=== PATIENT | female | born 1990 | race Two or more races ===

== ENCOUNTER → 2024-04-15 | Outpatient (CLI) | payer MEDICAID, SELFPAY ==
--- NOTE | 2024-04-15 | XR_ITS ---
Examination: Hand, left 3 views Technique: Hand AP, oblique, lateral 3 views Date and time of exam: April 15, 2024 1238 hours INDICATIONS: Decreased range of motion left first digit one year Finger left first digit 10 months FINDINGS: Mild juxta-articular bone demineralization No fracture Mild osteoarthritis interphalangeal joint first digit as well as distal interphalangeal joints second through fifth digits No erosive arthritis IMPRESSION: Mild osteoarthritis as above
--- NOTE | 2024-04-15 | XR_ITS ---
Examination: Wrist, left 3 views Technique: Wrist AP, oblique, lateral 3 views Date and time of exam: April 15, 2024 1238 hours INDICATIONS: Decreased mobility first digit one year. FINDINGS: No fracture or dislocation Mild osteoarthritis radiocarpal navicular trapezium first carpometacarpal joints No avascular necrosis IMPRESSION: Mild osteoarthritis
== END | disposition home or self-care (01) ==
LOC: CDIM 11:08
PROVIDERS: Referring Provider Nurse Practitioner Gerontology; Visit Provider Nurse Practitioner Gerontology
DX: M19.042 Primary osteoarthritis, left hand (principal); M19.032 Primary osteoarthritis, left wrist
CPT/HCPCS: 73110; 73130

== ENCOUNTER → 2024-11-13 | Outpatient (CLI) | payer MEDICAID, SELFPAY ==
--- NOTE | 2024-11-13 07:00 | XR_ITS ---
Examination: MRI xx foot, without contrast Date and time of exam: November 13, 2024, 0656 hours INDICATIONS: Right ankle pain swelling numbness several years, worse the last 2 months Technique: Multiple axial sagittal and coronal images of the right ankle have been obtained with the Siemens high-resolution 1.5 Rosina MRI scanner. Images obtained include T2-weighted fat-suppressed sagittal sections, TR 3500, TE 46, T2 weighted coronal fat suppressed images, TR 3050, TE 84, T2-weighted transverse fat suppressed images, TR 3260, TE 63, proton density transverse images, TR 4720 TE 46, and T1 weighted coronal images, TR 560, TE 13. Findings: Thickening of the Achilles tendon with vertical hyperintensity consistent with moderate strain Mild plantar fasciitis No bone marrow edema, bone contusion, occult fracture or avascular necrosis Negative for sinus Tarsi syndrome Anterior posterior inferior tibiofibular ligaments intact Moderate sprain posterior talofibular ligament axial image 14 Tendinitis posterior tibial tendon Extensor tendons are intact Dome of the talus intact IMPRESSION: Moderate strain Achilles tendon Mild plantar fasciitis No occult fracture or bone contusion or avascular necrosis Moderate sprain posterior talofibular ligament Tendinitis posterior tibial tendon
== END | disposition home or self-care (01) ==
PROVIDERS: PCP Nurse Practitioner Family; Referring Provider Nurse Practitioner Family; Visit Provider Nurse Practitioner Family
DX: M72.2 Plantar fascial fibromatosis (principal); S86.011A Strain of right Achilles tendon, initial encounter; S93.491A Sprain of other ligament of right ankle, initial encounter; X58.XXXA Exposure to other specified factors, initial encounter; M76.821 Posterior tibial tendinitis, right leg
CPT/HCPCS: 73721

== ENCOUNTER → 2024-11-26 | Outpatient (CLI) | payer MEDICAID, SELFPAY ==
--- NOTE | 2024-11-26 14:44 | XR_ITS ---
Examination: Bilateral wrists 6 views TECHNIQUE: AP oblique lateral each wrist total 6 views Date and time: November 26, 2024 1458 hours INDICATIONS: Bilateral wrist pain and weakness after falling one week ago. FINDINGS: Mild osteopenia. Mild bilateral osteoarthritis first carpometacarpal joints No wrist fractures No avascular necrosis No opaque foreign bodies No erosive arthritis IMPRESSION: No fractures Mild osteoarthritis first carpometacarpal joints
--- NOTE | 2024-11-26 14:44 | XR_ITS ---
Examination: Bilateral hands, 6 views. Technique: AP, Oblique, Lateral each hand total 6 views Date and time of exam: November 26, 2024 1458 hours Comparison April 15, 2024 INDICATIONS: Bilateral hand pain and weakness especially first digits after fall one week ago Findings: Mild juxta-articular bone demineralization No acute fracture involving either hand Mild bilateral osteoarthritis distal interphalangeal joints second through fifth digits and interphalangeal joints first digits Mild bilateral osteoarthritis first carpometacarpal joints No erosive arthritis IMPRESSION: Mild osteoarthritis as above
== END | disposition home or self-care (01) ==
LOC: CDIM 14:39
PROVIDERS: PCP Family Medicine
DX: M19.042 Primary osteoarthritis, left hand (principal); M19.041 Primary osteoarthritis, right hand; M18.0 Bilateral primary osteoarthritis of first carpometacarpal joints
CPT/HCPCS: 73110; 73130

== ENCOUNTER 2025-04-07 07:45 | Day surgery (SDC) | payer MEDICAID, SELFPAY ==
--- NOTE | 2025-04-06 08:48 | ESHP_ITS ---
RE: YULI GONZALEZ : 1990 DATE OF ADMISSION: 04/07/2025 This is a 34-year-old 3, para 1-1-1-2 who is multiparous and desires voluntary sterilization. She also wants her Nexplanon subdermal implant removed. MEDICATIONS: Nexplanon 68 mg subdermal implant, left upper extremity. SOCIAL HISTORY: She denies any alcohol, drug use, or smoking. PAST MEDICAL HISTORY: Hypertension, ectopic , preeclampsia with severe features, and leiomyomatous uterus. FAMILY HISTORY: Hypertension, cousin with autism. PAST SURGICAL HISTORY: delivery 2015, laparoscopic right salpingectomy 2018, delivery 2019, and appendectomy via laparotomy. REVIEW OF SYSTEMS: She denies any chest pain, palpitations, cough, fever, shortness of breath, or lower extremity pain. She denies any headache, change in vision, or right upper quadrant pain. PHYSICAL EXAMINATION: VITAL SIGNS: Blood pressure 110/70, heart rate 88, respirations 18, temperature 98.6. HEENT: Oropharynx and sclerae clear. LUNGS: Clear to auscultation bilaterally. HEART: Regular rate and rhythm. ABDOMEN: Old Pfannenstiel scar noted. Old trocar scars noted. EXTREMITIES: Nontender. SKIN: No gross rashes or lesions. NEUROLOGIC: No focal deficit. ASSESSMENT AND PLAN: Multiparity. Desires voluntary sterilization. PLAN: Laparoscopic bilateral salpingectomy and removal of Nexplanon subdermal implant. Informed consent was obtained. The patient was made aware of the risk, complications, alternatives, and benefits of the proposed procedure, and she agrees. She is aware of the failure rate and increased risk of tubal ectopic gestation if occurs. She is aware of the reversal methods of control, and she declines these methods. She is aware that vasectomy is simply easier and safer and may have a lower failure rate, but her male partner declines that option. She was given the [facility] booklet titled Permanent Control for Women and Men and it was discussed with the patient prior to surgery. She is aware of the risk of injury to bowel, bladder, ureters, adjacent organs, pulmonary embolism, deep vein thrombosis, injury to the vessels of the abdominal wall, hematoma, abscess, wound infection, wound dehiscence, pelvic infection, reoperation to repair injury to internal organs, anesthesia complications, the possibility that a laparotomy needs to be performed to complete the procedure or control bleeding, and the possibility the procedure is not able to be completed due to severe adhesions or technical difficulties. The patient is also aware that these risks are greater due to her previous multiple surgeries. She verbalized understanding and agreed to proceed with the procedure. DT: 09:26:52 TT: 09:58:00 Ref: [id number] - TID: [id number] MTDD
[2025-04-06 10:04] VITALS: BMI 33.5
[2025-04-06 11:05] LABS: Basophils # (Auto) 0.1 Thou/mm3 (0.0-0.2); Basophils % (Auto) 1 % (0-2.5); Eosinophils # (Auto) 0.1 Thou/mm3 (0.0-0.5); Eosinophils % (Auto) 2 % (0-10); Hematocrit 39.4 % (36.0-46.0); Hemoglobin 12.9 g/dL (12.0-16.0); Immature Granulocytes Auto 0.01 Thou/mm3 (0.00-0.00); Lymphocytes # (Auto) 1.3 Thou/mm3 (1.0-4.8); Lymphocytes % (Auto) 21 % (10-50); Mean Corpuscular HGB Conc 32.7 g/dl (31.0-37.0); Mean Corpuscular Hemoglobin 29.9 pg (25.0-35.0); Mean Corpuscular Volume 91 fL (80-100); Monocytes # (Auto) 0.4 Thou/mm3 (0.0-0.8); Monocytes % (Auto) 7 % (0-12); Neutrophils # (Auto) 4.5 Thou/mm3 (1.8-7.7); Neutrophils % (Auto) 70 % (37-80); Nucleated Red Blood Cell # 0.00 Thou/mm3 (0.00-0.00); Nucleated Red Blood Cell % 0 /100 WBC (0); Platelet Count 204 Thou/mm3 (140-440); RDW Standard Deviation 42.7 fL (36.4-46.3); Red Blood Count 4.32 Miln/mm3 (4.00-5.20); White Blood Count 6.5 Thou/mm3 (3.6-11.0)
[2025-04-06 11:13] LABS: INR 1.0 (0.9-1.3); Partial Thromboplastin Time 30.6 Seconds (22.0-36.0); Prothrombin Time 10.7 Seconds (9.0-12.2)
[2025-04-06 11:17] LABS: Alanine Aminotransferase 17 U/L (10-49); Albumin, Serum 4.7 gm/dL (3.5-5.0); Albumin/Globulin Ratio 1.8 (1.2-2.2); Alkaline Phosphatase 61 U/L (46-116); Anion Gap 9 (7-16); Aspartate Amino Transferase 16 U/L (0-34); BUN/Creatinine Ratio 19 Ratio (12-20); Beta HCG,Quantitative < 1 mIU/mL (<5.0); Bilirubin,Total 0.5 mg/dL (0.3-1.2); Blood Urea Nitrogen 13 mg/dL (9-23); Calcium 9.5 mg/dL (8.3-10.6); Calcium (Corrected) 9.5 mg/dL (8.5-10.1); Carbon Dioxide 25.9 mMol/L (20.0-31.0); Chloride 108 mMol/L (98-107); Creatinine (Component) 0.7 mg/dL (0.6-1.3); Estimated Creatinine Clearance 106.9 mL/min (>60); Globulin 2.6 gm/dL (2.3-3.5); Glucose 92 mg/dL (74-106); Osmolality,Calculated 285 (275-295); Potassium 4.0 mMol/L (3.4-5.1); Sodium 143 mMol/L (136-145); Total Protein 7.3 gm/dL (5.7-8.2); eGFR > 60 See Note
[2025-04-07] VITALS (8 sets, daily range): BP systolic 108–129; BP diastolic 55–67; PULSE 65–96; RESP 12–24; TEMP 36.3–36.7; O2SAT 97–100; BMI 33.5
--- NOTE | 2025-04-07 11:15 | ESOP_ITS ---
Operative Note - [facility] SILVERSMITH Procedure Date of procedure: 04/07/25 Procedure Performed: Laparoscopic bilateral salpingectomy Nexplanon removal of subdermal implant in left upper extremity Lysis of Adhesions. Indication: Multiparity desires voluntary sterilization Desires Removal Of Nexplanon Pre-Op diagnosis: Multiparity desires voluntary sterilization Desires Removal Of Nexplanon Post-Op diagnosis: Multiparity desires voluntary sterilization Desires Removal Of Nexplanon Pelvic adhesions Anesthesia type: General Procedure description: After proper informed consent was obtained, and the patient made aware of the risks complications alternatives and benefits of the proposed procedure she was taken to the operating room.? She was placed in the supine position on the operating room table.? She underwent induction of general anesthesia.? She was placed in the dorsal lithotomy position.? Using sterile technique a red rubber catheter was used to drain the bladder.? The patient was prepped and draped in usual sterile fashion.? A timeout was performed.? An acorn manipulator was placed in the uterus. ? Attention was then turned to the abdomen where the physician regowned and gloved.? A 5 mm incision was made in the umbilical fold.? With tenting up of the abdomen a Veress needle was inserted.? Using saline intra-abdominal placement was confirmed.? The abdomen was inflated with carbon dioxide to 12 mmHg.? The Veress needle was then removed.? The [place] trocar with the laparoscope was carefully inserted through the umbilical incision and the peritoneal cavity entered.? The patient was placed in slight Trendelenburg.? A 5 mm incision was made in the region of the symphysis pubis in the midline approximately 2 cm above the symphysis pubis.? Through this 5 mm incision a 5 mm trocar was inserted under direct visualization of the laparoscope.? Using the Briggs Geck grasper the right fallopian tube was grasped at the fimbriated end.?? Using the 1136 harmonic scalpel the right salpingectomy was performed and specimen sent to pathology. The left fallopian tube was grasped at the fimbriated end and using the harmonic scalpel the left salingectomy was performed.? Hemostasis was achieved.? The pelvis was visualized and found to be hemostatic. The trocars were removed from the abdomen after carbon oxide was removed from the peritoneal cavity.? The incisions were closed with 4-0 Monocryl and covered with Dermabond after they were each infiltrated with Marcaine half percent with epinephrine.? Attention was then turned to the vagina where the uterine manipulator was removed and there was no bleeding at the end of the procedure. Attention was turned to the left upper extremity where the skin was prepped and drapped over the nexplanon amanda site. Using a number 11 blade scalpel the 3 mm inscision was made and the Nexplanon amanda removed without diff iculty. The skin was closed with 4-0 monocryl and covered with Dermabond. Specimen sent to pathology. Specimen: left tube, right tube and other (Nexplanon amanda) Estimated blood loss (ml): 10 Findings: Normal appearing ovaries and uterus. Left fallopian tube had adhesions to posterior peritoneum at fimbriated end Right fallopian tube was missing the ampullary segment with filmy adhesions to posterior peritoneum. Nexplanon subdermal implant left upper extremity. Complications: none Surgical staff Dr Johnson Surgeon Alvarez Mccord [employer] Operation Date: 04/07/25 10:00 <No data on this case meets the specified criteria> Diagnosis Problem List Completed Was Problem List Reviewed/Reconciled?: Yes
--- NOTE | 2025-04-07 11:32 | SUR.PHASEI ---
1110: Pt received in [facility] via gurney. Report from Shashi TRONCOSO and Alvarez CAMPOS. Pt obtunded. Resp even, un labored. VS stable. No vaginal bleeding.
--- NOTE | 2025-04-07 11:40 | SUR.PHASEI ---
1133: Pt has been resting with no complaints voiced. Resp even, unlabored. VS stable. No vaginal bleeding. Denies pain.
--- NOTE | 2025-04-07 15:20 | SUR.PHASEII ---
1150: Pt more awake, alert. VS stable. No vaginal bleeding. Denies pain. Sitting up tolerating po fluids with no difficulty swallowing and no n/v. 1218: Pt fully awake, oriented x3. VS stable. No vaginal bleeding. Denies pain. Pt dressed. Assisted to restroom. Ambulation steady. Pt and aunt stated understanding of discharge instructions. Pt discharged from [facility] in stable condition.
== END 2025-04-07 12:18 | disposition home or self-care (01) ==
PROVIDERS: PCP Family Medicine; Referring Provider Specialist; Visit Provider Specialist
PROC: (CPT 58670; principal; 2025-04-07 09:45)
PROC: (CPT 58661; 2025-04-07 09:45)
DX: Z30.2 Encounter for sterilization (principal)
CPT/HCPCS: 58661; 11982; 36415; 80053; 84702; 85025; 85610; 85730; 86850; 86900; 86901; A4649; J0131; J0690; J1171; J1885; J2250; J2704; J3010; J3490